=== PATIENT | female | born 1990 | race Caucasian/White ===

== ENCOUNTER 2021-09-15 18:24 | Emergency (ER) | payer MEDICAID, OTHER ==
[~2021-09-15] VITALS: Ht 167.6 cm; Wt 98.9 kg
[2021-09-15 18:44] VITALS: BP 135/90
[2021-09-15] MEDS ORDERED: ACET-10509 PO (20:16)
[2021-09-15] MEDS ORDERED: IBUP-2213 PO (20:16)
[2021-09-15 20:53] VITALS: BP 135/90
--- NOTE | 2021-09-15 20:53 | NUR ---
Patient discharged with v/s stable. Written and verbal after care instructions given and explained. Patient verbalized understanding. Ambulatory with steady gait. All questions addressed prior to discharge. Advised to follow up with PMD.
== END 2021-09-15 20:40 | disposition home or self-care (01) ==
LOC: MED 18:24
DX: S20.219A Contusion of unspecified front wall of thorax, initial encounter (principal); Z79.899 Other long term (current) drug therapy; Z98.890 Other specified postprocedural states; V43.53XA Car driver injured in collision with pick-up truck in traffic accident, initial encounter; Y93.89 Activity, other specified; Y92.89 Other specified places as the place of occurrence of the external cause; Y99.8 Other external cause status
CPT/HCPCS: 71046; 99283